=== PATIENT | male | born 1940 | race Caucasian/White ===

== ENCOUNTER 2025-03-05 02:51 | Emergency (ER) | payer MEDICARE ==
[~2025-03-05] VITALS: Ht 167.6 cm; Wt 75.9 kg
[2025-03-05] MEDS ORDERED: NAPROXEN250 MG PO (06:40)
== END 2025-03-05 06:55 | disposition home or self-care (01) ==
LOC: ED 02:51
DX: S20.212A Contusion of left front wall of thorax, initial encounter (principal); W18.39XA Other fall on same level, initial encounter; Y93.89 Activity, other specified; Y92.89 Other specified places as the place of occurrence of the external cause; Y99.8 Other external cause status